=== PATIENT | female | born 2005 ===

== ENCOUNTER 2025-03-01 21:05 | Emergency (ER) | payer SELFPAY ==
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
[2025-03-01 21:15] VITALS: BP 100/59; PULSE 86; RESP 16; TEMP 36.3; O2SAT 99
--- NOTE | 2025-03-02 00:37 | PC.NURSE ---
pt to learning facilitator we are leaving. pt ambulatory with steady gait to exit.
== END 2025-03-02 01:35 | disposition left against medical advice (07) ==
LOC: ANHED 03-02 01:15
PROVIDERS: Emergency Provider Student in an Organized Health Care Education/Training Program
DX: R07.9 Chest pain, unspecified (principal); R51.9 Headache, unspecified
CPT/HCPCS: 71046; 72040; 72072; 99199